=== PATIENT | female | born 2000 | race Caucasian/White ===

== ENCOUNTER 2021-01-17 19:40 | Emergency (ER) | payer BC ==
[2021-01-17 20:05] VITALS: TEMP 98.6
[2021-01-17] MEDS ORDERED: SODIUM CHLORIDE 0.9% 1,000 ML IV STA (20:34)
[2021-01-17] MEDS ORDERED: METOCLOPRAMIDE 5 MG/ML 2 ML VIAL IVP STA (20:35)
[2021-01-17] MEDS ORDERED: diphenhydrAMINE 50 MG/ML 1 ML VIAL IVP STA (20:35)
[2021-01-17 21:13] LABS: Basophils # (A) 0.1 k/uL (0-0.2); Basophils % (A) 1 %; Eosinophils # (A) 0.2 k/uL (0-0.7); Eosinophils % (A) 2 %; HCT 44.1 % (34.0-46.0); HGB 14.6 gm/dL (11.4-16.0); Lymphocytes # (A) 2.9 k/uL (1.0-4.8); Lymphocytes % (A) 33 %; MCH 28.6 pg (25.0-35.0); MCV 86.5 fL (80.0-100.0); Mean Platelet Volume 8.1; Monocytes # (A) 0.4 k/uL (0-1.0); Monocytes % (A) 4 %; Neutrophils # (A) 5.2 k/uL (1.3-7.7); Neutrophils % (A) 59 %; Platelet Count 266 k/uL (150-450); RDW 12.8 % (11.5-15.5); WBC 8.8 k/uL (3.8-10.6)
[2021-01-17 21:18] LABS: Appearance,Urine Cloudy (Clear); Bacteria,Urine Occasional /hpf; Bilirubin,Urine Negative (Negative); Blood,Urine Negative (Negative); Color,Urine Light Yellow; Glucose,Urine (UA) Negative (Negative); Ketones,Urine Negative (Negative); Leukocyte Esterase,Urine Negative (Negative); Mucus,Urine Rare /hpf; Nitrite,Urine Negative (Negative); Protein,Urine Negative (Negative); RBC,Urine 1 /hpf (0-5); Specific Gravity,Urine 1.009 (1.001-1.035); Squamous Epithelial Cell,Urine 6 /hpf (0-4); Urobilinogen,Urine <2.0 mg/dL (<2.0); WBC,Urine 2 /hpf (0-5)
[2021-01-17 21:26] LABS: ALT 21 U/L (4-34); AST 20 U/L (14-36); African American GFR (CKD) >90 (>60 ml/min/1.73 sqM); Albumin 4.5 g/dL (3.5-5.0); Alkaline Phosphatase 76 U/L (38-126); Anion Gap 13 mmol/L; Blood Urea Nitrogen 9 mg/dL (7-17); Calcium 9.2 mg/dL (8.4-10.2); Carbon Dioxide 21 mmol/L (22-30); Chloride 106 mmol/L (98-107); Glucose 126 mg/dL (74-99); Non-African American GFR(CKD) 82 (>60 ml/min/1.73 sqM); Potassium 3.9 mmol/L (3.5-5.1); Sodium 140 mmol/L (137-145); Total Bilirubin 0.3 mg/dL (0.2-1.3); Total Protein 7.6 g/dL (6.3-8.2)
--- NOTE | 2021-01-17 21:42 | XR ---
EXAMINATION TYPE: XR chest 2V DATE OF EXAM: 01/17/2021 COMPARISON: NONE HISTORY: Migraine. Hand numbness. TECHNIQUE: 2 views FINDINGS: Heart and mediastinum are normal. Lungs are clear. Diaphragm is normal. There are chest yeimy ds. Bony thorax appears normal. IMPRESSION: Normal chest.
--- NOTE | 2021-01-17 21:53 | CT ---
EXAMINATION TYPE: CT brain wo con DATE OF EXAM: 01/17/2021 COMPARISON: None HISTORY: Dizziness, syncope CT DLP: 1025.4 mGycm Automated exposure control for dose reduction was used. Images obtained of the brain without contrast. Ventricles have normal size. There is no mass effect nor midline shift. There is no sign of intracran ial hemorrhage. The calvarium is intact. Skull base is intact. There is normal aeration of the mastoi d sinuses. IMPRESSION: Normal unenhanced head CT scan.
[2021-01-17] MEDS ORDERED: KETOROLAC 15 MG/ML 1 ML VIAL IVP STA (22:12)
[2021-01-17 22:13] VITALS: BP 121/68; RESP 16
--- NOTE | 2021-01-17 22:41 | ED ---
General Adult HPI - General Chief complaint: Dizziness Stated complaint: Head pain Time Seen by Provider: 01/17/21 20:06 Source: patient Mode of arrival: ambulatory Limitations: no limitations - History of Present Illness Initial comments: 20-year-old female with a past medical history of migraine presents for migraine headache. Patient reports that she has had a migraine for 11 days. States it is throughout her head. States the pain feels exactly consistent with the previous migraines that she has had for years however they do not usually last t his long and she cannot get it to subside. Patient reports she does have some nausea as well as light sensitivity. She states that she did start a new medication through primary care however this seemed to worsen her pain. She did start another one last week and also has an appointment with neurology in the coming month. Patient states that the pain has been stable throughout the past with an days. It did not worsen significantly today. However patient was showering when she got out of the shower she had some lightheadedness and passed out hitting the upper Tylenol. Patient does not think she hit her head. Patient was also complaining of bilateral hand tingling. Denied any weakness or loss of sensation in the hands.Patient has no other complaints at this time including shortness of breath, chest pain, abdominal pain, nausea or vomiting, or visual changes. - Related Data Home Medications Medication Instructions Recorded Confirmed Acetaminophen Tab [Tylenol] 1,000 mg PO Q8H PRN 01/17/21 01/17/21 Norethindrone-E.estradiol-Iron 1 tab PO DAILY 01/17/21 01/17/21 [Junel Fe 1.5 mg-30 Mcg Tablet] Topiramate [Topamax] See Taper PO HS 01/17/21 01/17/21 Allergies Allergy/AdvReac Type Severity Reaction Status Date / Time cortisone AdvReac Swelling Verified 01/17/21 21:14 Review of Systems ROS Statement: Those systems with pertinent positive or pertinent negative responses have been documented in the HPI. ROS Other: All systems not noted in ROS Statement are negative. Past Medical History Additional Past Medical History / Comment(s): Migraines. History of Any Multi-Drug Resistant Organisms: None Reported Past Surgical History: Orthopedic Surgery Past Psychological History: No Psychological Hx Reported Smoking Status: Never smoker Past Alcohol Use History: Occasional Past Drug Use History: None Reported General Exam Limitations: no limitations General appearance: alert, in no apparent distress Head exam: Present: atraumatic, normocephalic, normal inspection Eye exam: Present: normal appearance, PERRL, EOMI. Absent: scleral icterus, conjunctival injection, periorbital swelling ENT exam: Present: normal exam, mucous membranes moist Neck exam: Present: normal inspection, full ROM. Absent: tenderness, meningismus, lymphadenopathy Respiratory exam: Present: normal lung sounds bilaterally. Absent: respiratory distress, wheezes, rales, rhonchi, stridor Cardiovascular Exam: Present: regular rate, normal rhythm, normal heart sounds. Absent: systolic murmur, diastolic murmur, rubs, gallop, clicks GI/Abdominal exam: Present: soft, normal bowel sounds. Absent: distended, tenderness, guarding, rebound, rigid Neurological exam: Present: alert, oriented X3, normal gait Expanded Patient oriented to: Present: person, place, time Speech: Present: fluid speech Cranial nerves: EOM's Intact: Normal, Nystagmus: Normal, Facial Sensation: Normal Upper motor neuron: Pronator Drift: Normal Sensory exam: Upper Extremity Light Touch: Normal, Upper Extremity Pin Prick: Normal, Lower Extremity Light Touch: Normal, Lower Extremity Pin Prick: Normal Motor strength exam: RUE: 5, LUE: 5, RLE: 5, LLE: 5 Course Vital Signs 01/17/21 01/17/21 01/17/21 19:57 21:13 22:12 Temperature 98.6 F Pulse Rate 104 H 106 H 94 Respiratory 18 18 16 Rate Blood Pressure 164/99 137/91 121/68 O2 Sat by Pulse 99 100 100 Oximetry 01/17/21 22:47 Temperature 98.6 F Pulse Rate 82 Respiratory 16 Rate Blood Pressure 121/68 O2 Sat by Pulse 98 Oximetry Medical Decision Making - Medical Decision Making Vitals are stable. HPI and physical exam as documented. CBC unremarkable. CMP unremarkable. EKG is nonischemic. Chest x-ray showed no acute process. As patient has not had any imaging of her head a CT was ordered which was normal. Patient was given fluids and migraine cocktail. Had significant improvement in symptoms. I suspect the episode was vasovagal in nature given patient had just showered. Patient's migraines are clearly uncontrolled and she does need to follow-up with her neurologist at her appointment this coming month. If she has worsening symptoms prior to that she will return to the emergency room. She will try to follow up with primary care this week as well. - Lab Data Result diagrams: 01/17/21 20:58 01/17/21 20:58 Lab Results 01/17/21 01/17/21 01/17/21 Range/Units 20:58 20:58 20:58 WBC 8.8 (3.8-10.6) k/uL RBC 5.10 (3.80-5.40) m/uL Hgb 14.6 (11.4-16.0) gm/dL Hct 44.1 (34.0-46.0) % MCV 86.5 (80.0-100.0) fL MCH 28.6 (25.0-35.0) pg MCHC 33.0 (31.0-37.0) g/dL RDW 12.8 (11.5-15.5) % Plt Count 266 (150-450) k/uL MPV 8.1 Neutrophils % 59 % Lymphocytes % 33 % Monocytes % 4 % Eosinophils % 2 % Basophils % 1 % Neutrophils # 5.2 (1.3-7.7) k/uL Lymphocytes # 2.9 (1.0-4.8) k/uL Monocytes # 0.4 (0-1.0) k/uL Eosinophils # 0.2 (0-0.7) k/uL Basophils # 0.1 (0-0.2) k/uL Sodium 140 (137-145) mmol/L Potassium 3.9 (3.5-5.1) mmol/L Chloride 106 (98-107) mmol/L Carbon Dioxide 21 L (22-30) mmol/L Anion Gap 13 mmol/L BUN 9 (7-17) mg/dL Creatinine 0.98 (0.52-1.04) mg/dL Est GFR (CKD-EPI)AfAm >90 (>60 ml/min/1.73 sqM) Est GFR (CKD-EPI)NonAf 82 (>60 ml/min/1.73 sqM) Glucose 126 H (74-99) mg/dL Calcium 9.2 (8.4-10.2) mg/dL Total Bilirubin 0.3 (0.2-1.3) mg/dL AST 20 (14-36) U/L ALT 21 (4-34) U/L Alkaline Phosphatase 76 (38-126) U/L Total Protein 7.6 (6.3-8.2) g/dL Albumin 4.5 (3.5-5.0) g/dL Urine Color Light Yellow Urine Appearance Cloudy H (Clear) Urine pH 6.0 (5.0-8.0) Ur Specific [place] 1.009 (1.001-1.035) Urine Protein Negative (Negative) Urine Glucose (UA) Negative (Negative) Urine Ketones Negative (Negative) Urine Blood Negative (Negative) Urine Nitrite Negative (Negative) Urine Bilirubin Negative (Negative) Urine Urobilinogen <2.0 (<2.0) mg/dL Ur Leukocyte Esterase Negative (Negative) Urine RBC 1 (0-5) /hpf Urine WBC 2 (0-5) /hpf Ur Squamous Epith Cells 6 H (0-4) /hpf Urine Bacteria Occasional H (None) /hpf Urine Mucus Rare H (None) /hpf Urine HCG, Qual (Not Detectd) 01/17/21 Range/Units 20:58 WBC (3.8-10.6) k/uL RBC (3.80-5.40) m/uL Hgb (11.4-16.0) gm/dL Hct (34.0-46.0) % MCV (80.0-100.0) fL MCH (25.0-35.0) pg MCHC (31.0-37.0) g/dL RDW (11.5-15.5) % Plt Count (150-450) k/uL MPV Neutrophils % % Lymphocytes % % Monocytes % % Eosinophils % % Basophils % % Neutrophils # (1.3-7.7) k/uL Lymphocytes # (1.0-4.8) k/uL Monocytes # (0-1.0) k/uL Eosinophils # (0-0.7) k/uL Basophils # (0-0.2) k/uL Sodium (137-145) mmol/L Potassium (3.5-5.1) mmol/L Chloride (98-107) mmol/L Carbon Dioxide (22-30) mmol/L Anion Gap mmol/L BUN (7-17) mg/dL Creatinine (0.52-1.04) mg/dL Est GFR (CKD-EPI)AfAm (>60 ml/min/1.73 sqM) Est GFR (CKD-EPI)NonAf (>60 ml/min/1.73 sqM) Glucose (74-99) mg/dL Calcium (8.4-10.2) mg/dL Total Bilirubin (0.2-1.3) mg/dL AST (14-36) U/L ALT (4-34) U/L Alkaline Phosphatase (38-126) U/L Total Protein (6.3-8.2) g/dL Albumin (3.5-5.0) g/dL Urine Color Urine Appearance (Clear) Urine pH (5.0-8.0) Ur Specific [place] (1.001-1.035) Urine Protein (Negative) Urine Glucose (UA) (Negative) Urine Ketones (Negative) Urine Blood (Negative) Urine Nitrite (Negative) Urine Bilirubin (Negative) Urine Urobilinogen (<2.0) mg/dL Ur Leukocyte Esterase (Negative) Urine RBC (0-5) /hpf Urine WBC (0-5) /hpf Ur Squamous Epith Cells (0-4) /hpf Urine Bacteria (None) /hpf Urine Mucus (None) /hpf Urine HCG, Qual Not Detected (Not Detectd) - Radiology Data Radiology results: report reviewed, image reviewed Disposition Clinical Impression: Migraine Disposition: HOME SELF-CARE Condition: Good Instructions (If sedation given, give patient instructions): Migraine Headache (ED) Additional Instructions: Please follow up with primary care in 1-2 days. Please return to the emergency room for any worsening symptoms. Is patient prescribed a controlled substance at d/c from ED?: No Referrals: Huyen Ling MD [Primary Care Provider] - 1-2 days Time of Disposition: 22:41
[2021-01-17 22:48] VITALS: PULSE 82
== END 2021-01-17 22:48 | disposition home or self-care (01) ==
LOC: EC 19:40
DX: G43.909 Migraine, unspecified, not intractable, without status migrainosus (principal)
CPT/HCPCS: 36415; 93005; 80053; 85025; 81001; 81025; 71046; 70450; 99284; 96374; 96375; 96361; J1200; J2765; J1885

== ENCOUNTER 2021-07-08 02:38 | Emergency (ER) | payer BC ==
[2021-07-08 02:51] VITALS: TEMP 98.2
[2021-07-08] MEDS ORDERED: KETOROLAC 15 MG/ML 1 ML VIAL IVP STA (02:59)
[2021-07-08] MEDS ORDERED: diphenhydrAMINE 50 MG/ML 1 ML VIAL IVP STA (02:59)
[2021-07-08] MEDS ORDERED: SODIUM CHLORIDE 0.9% 1,000 ML IV STA (02:59)
[2021-07-08] MEDS ORDERED: PROCHLORPERAZINE INJ 10 MG/2 ML VIAL IVP STA (03:00)
--- NOTE | 2021-07-08 03:00 | ED ---
Headache HPI - General Chief Complaint: Headache Stated Complaint: Migraines Time Seen by Provider: 07/08/21 02:40 Source: RN notes reviewed, old records reviewed Mode of arrival: ambulatory Limitations: no limitations - History of Present Illness Initial Comments: This is a 21-year-old female to the ER today. Patient presents today for evaluation of headache with history of migraines acute on chronic migraine at this time. Patient is noted traumas no fevers and no other neurological complaint. Again patient does have history of migraine MD Complaint: headache, "migraine" -: days(s) Onset Description: gradual Location: right, left, frontal Severity: moderate Severity scale (1-10): 5 Quality: aching, throbbing Consistency: intermittent Worsens With: none Context: new medication Associated Symptoms: nausea, photophobia, sensitivity to sound Other Symptoms: other (none) Treatments Prior to Arrival: none - Related Data Home Medications Medication Instructions Recorded Confirmed Acetaminophen Tab [Tylenol] 1,000 mg PO Q8H PRN 01/17/21 01/17/21 Norethindrone-E.estradiol-Iron 1 tab PO DAILY 01/17/21 01/17/21 [Junel Fe 1.5 mg-30 Mcg Tablet] Topiramate [Topamax] See Taper PO HS 01/17/21 01/17/21 Allergies Allergy/AdvReac Type Severity Reaction Status Date / Time cortisone AdvReac Swelling Verified 01/17/21 21:14 Review of Systems ROS Statement: Those systems with pertinent positive or pertinent negative responses have been documented in the HPI. ROS Other: All systems not noted in ROS Statement are negative. Past Medical History Additional Past Medical History / Comment(s): Migraines. History of Any Multi-Drug Resistant Organisms: None Reported Past Surgical History: Orthopedic Surgery Past Psychological History: No Psychological Hx Reported Smoking Status: Never smoker Past Alcohol Use History: Occasional Past Drug Use History: None Reported General Exam Limitations: no limitations General appearance: alert, in no apparent distress Head exam: Present: atraumatic, normocephalic, normal inspection Eye exam: Present: normal appearance, PERRL, EOMI. Absent: scleral icterus, conjunctival injection, periorbital swelling ENT exam: Present: normal exam, mucous membranes moist Neck exam: Present: normal inspection. Absent: tenderness, meningismus, lymphadenopathy Respiratory exam: Present: normal lung sounds bilaterally. Absent: respiratory distress, wheezes, rales, rhonchi, stridor Cardiovascular Exam: Present: regular rate, normal rhythm, normal heart sounds. Absent: systolic murmur, diastolic murmur, rubs, gallop, clicks GI/Abdominal exam: Present: soft, normal bowel sounds. Absent: distended, tenderness, guarding, rebound, rigid Extremities exam: Present: normal inspection, full ROM, normal capillary refill. Absent: tenderness, pedal edema, joint swelling, calf tenderness Back exam: Present: normal inspection Neurological exam: Present: alert, oriented X3, CN II-XII intact Psychiatric exam: Present: normal affect, normal mood Skin exam: Present: warm, dry, intact, normal color. Absent: rash Course Vital Signs 07/08/21 02:44 Temperature 98.2 F Pulse Rate 83 Respiratory 16 Rate Blood Pressure 155/88 O2 Sat by Pulse 98 Oximetry - Reevaluation(s) Reevaluation #1: 07/08/21 03:33 medical record is reviewed Reevaluation #2: 07/08/21 03:33 Patient's headache at this time is improved Reevaluation #3: 07/08/21 03:33 Patient is informed results questions answered feels good for discharge home Medical Decision Making - Medical Decision Making 21 female with acute on chronic migraine headache. Patient's headache is resolved here in the ER with no worsening symptoms. Patient can be discharged Disposition Clinical Impression: Migraine headache Disposition: HOME SELF-CARE Condition: Good Instructions (If sedation given, give patient instructions): Acute Headache (ED) Is patient prescribed a controlled substance at d/c from ED?: No Referrals: Huyen Ling MD [Primary Care Provider] - 1-2 days
[2021-07-08 04:12] VITALS: BP 127/86; PULSE 70; RESP 20
== END 2021-07-08 04:52 | disposition home or self-care (01) ==
LOC: EC 02:38
DX: G43.909 Migraine, unspecified, not intractable, without status migrainosus (principal)
CPT/HCPCS: 99283; 96365; 96375 ×3; J1200; J0780; J2930; J1885

== ENCOUNTER → 2021-07-11 | Outpatient (CLI) | payer BC ==
--- NOTE | 2021-07-12 05:01 | MR ---
EXAMINATION TYPE: MR brain and iac wo con DATE OF EXAM: 07/11/2021 COMPARISON: None HISTORY: Chronic migraine, dizziness, syncope Multiplanar multiecho imaging of the brain and posterior fossa without contrast. Ventricles have normal size. There is no mass effect nor midline shift. There is no sign of intracran ial hemorrhage. Diffusion images show no evidence of an acute infarct. Mayer-white matter structures have fairly normal signal pattern. There is no evidence of cerebral shelby a. Sella turcica appears normal. Brainstem is intact. Corpus callosum is intact. There is no evidence of orbital mass. The internal auditory canals appear normal. There is no evidence of cerebellopontine angle mass. The acoustic nerve and vestibular nerves appear normal. There is normal signal pattern of the temporal erin carlos. There is no evidence of mastoiditis. Foramen magnum appears normal. IMPRESSION: Normal MR scan of the brain.
== END | disposition home or self-care (01) ==
LOC: RADMRIMAIN 06:28
PROVIDERS: ATTEND Psychiatry & Neurology Neurology
DX: G43.909 Migraine, unspecified, not intractable, without status migrainosus (principal); R42 Dizziness and giddiness
CPT/HCPCS: 70551

== ENCOUNTER 2022-10-22 15:35 | Outpatient (CLI) | payer BC ==
[2022-10-22 16:29] VITALS: BP 138/90; PULSE 119; RESP 16; TEMP 98
--- NOTE | 2022-10-23 07:44 | P.MSEPDOC ---
Presenting Problems - Arrival Data Date of Arrival on Unit: 10/22/22 Time of Arrival on Unit: 15:31 Mode of Transport: Ambulatory - Complaint OB-Reason for Admission/Chief Complaint: Rule Out SROM Medical History - Information : 1 Para: 0 Number of Living Children: 0 - Gestational Age Gestational Age by TRAMAINE (wks/days): 36 Weeks and 0 Days Review of Systems - Review of Systems Constitutional: No problems Breast: No problems ENT: No problems Cardiovascular: No problems Respiratory: No problems Gastrointestinal: No problems Genitourinary: No problems Musculoskeletal: No problems Neurological: No problems Skin: No problems Vital Signs - Temperature Temperature: 98.0 F Temperature Source: Temporal Artery Scan - Pulse Right Sitting Brachial Pulse Rate: 119 Pulse Assessment Method: Automatic Cuff - Respirations Respiratory Rate: 16 Oxygen Delivery Method: Room Air O2 Sat by Pulse Oximetry: 100 - Blood Pressure Right Arm Sitting Blood Pressure: 138/90 Blood Pressure Mean: 106 Blood Pressure Source: Automatic Cuff Medical Screen Scoring - Cervical Exam Dilation (cm): 0 Effacement (%): 0 Station: -2 Membranes: Intact - Uterine Contractions Frequency From (mins): 2 Frequency To (mins): 3 Duration From (seconds): 30 Duration To (seconds): 40 Intensity: Mild Resting: Soft to palpation - Assessment - Baby A Baseline FHR: 130 Heart Rate - NICHD Category: Category I (Normal) NST: Reactive Physician Notification - Physician Notified Physician Notified Date: 10/22/22 Physician Notified Time: 16:11 Physician: Remberto Rivas New Order Received: Yes - Notification Comment Comment: dc Maternal Triage Index - Maternal Triage Index Presenting for scheduled procedure w/no complaint: No - Stat/Priority 1 Stat Priority 1: No - Urgent/Priority 2 Urgent Priority 2: No - Prompt/Priority 3 Prompt Priority 3: Yes Criteria Met for Priority 3: leaking fluid, cramping Disposition - Disposition OB Disposition: Discharge to home Discharge Date: 10/22/22 Discharge Time: 16:21 I agree with the RN Medical Screening Exam: Yes Case reviewed; plan agreed upon as documented in EMR&OBIX.: Yes Diagnosis: FALSE LABOR BEFORE 37 COMPLETED WEEKS OF GEST, THIRD TRI
== END 2022-10-22 16:21 | disposition home or self-care (01) ==
LOC: FBPOP 15:35
PROVIDERS: ATTEND Obstetrics & Gynecology
DX: O47.03 False labor before 37 completed weeks of gestation, third trimester (principal); Z3A.36 36 weeks gestation of pregnancy; Z88.8 Allergy status to other drugs, medicaments and biological substances
CPT/HCPCS: 59025; 84112; 99213

== ENCOUNTER 2022-10-24 21:19 | Outpatient (CLI) | payer BC ==
[2022-10-24] MEDS ORDERED: diphenhydrAMINE 50 MG/ML 1 ML VIAL IVP STA (21:55)
[2022-10-24] MEDS ORDERED: METOCLOPRAMIDE 5 MG/ML 2 ML VIAL IVP STA (21:56)
[2022-10-24] MEDS ORDERED: LACTATED RINGERS 1,000 ML IV SCH (22:00)
[2022-10-24 22:28] LABS: Basophils % (A) 0 %; Eosinophils # (A) 0.1 k/uL (0-0.7); Eosinophils % (A) 0 %; HCT 34.6 % (34.0-46.0); HGB 11.9 gm/dL (11.4-16.0); Lymphocytes # (A) 1.9 k/uL (1.0-4.8); Lymphocytes % (A) 16 %; MCH 30.3 pg (25.0-35.0); MCHC 34.5 g/dL (31.0-37.0); MCV 87.8 fL (80.0-100.0); Mean Platelet Volume 12.2; Monocytes # (A) 0.6 k/uL (0-1.0); Monocytes % (A) 5 %; Neutrophils # (A) 9.4 k/uL (1.3-7.7); Neutrophils % (A) 77 %; Platelet Count 153 k/uL (150-450); RBC 3.94 m/uL (3.80-5.40); RDW 13.3 % (11.5-15.5); WBC 12.2 k/uL (3.8-10.6)
[2022-10-24 22:28] LABS: Appearance,Urine Cloudy (Clear); Bacteria,Urine Few /hpf; Bilirubin,Urine Negative (Negative); Blood,Urine Negative (Negative); Color,Urine Yellow; Glucose,Urine (UA) Negative (Negative); Hyaline Casts,Urine 1 /lpf (0-2); Ketones,Urine Negative (Negative); Leukocyte Esterase,Urine Small (Negative); Mucus,Urine Few /hpf; Nitrite,Urine Negative (Negative); PH, Urine 6.5 (5.0-8.0); Protein,Urine 1+ (Negative); RBC,Urine 1 /hpf (0-5); Specific Gravity,Urine 1.024 (1.001-1.035); Squamous Epithelial Cell,Urine 13 /hpf (0-4); Urobilinogen,Urine <2.0 mg/dL (<2.0); WBC,Urine 9 /hpf (0-5)
[2022-10-24 22:39] LABS: Creatinine,Urine Random 129.9 mg/dL; Protein/Creatinine Ratio,Urine 0.108
[2022-10-25 00:26] LABS: ALT 15 U/L (4-34); AST 19 U/L (14-36); African American GFR (CKD) >90 (>60 ml/min/1.73 sqM); Blood Urea Nitrogen 8 mg/dL (7-17); LDH 342 U/L (313-618); Non-African American GFR(CKD) >90 (>60 ml/min/1.73 sqM); Uric Acid 5.2 mg/dL (3.7-7.4)
[2022-10-25 00:55] VITALS: BP 139/89; PULSE 88; RESP 18; TEMP 97.8
--- NOTE | 2022-10-27 08:42 | P.MSEPDOC ---
Presenting Problems - Arrival Data Date of Arrival on Unit: 10/24/22 Time of Arrival on Unit: 21:19 Mode of Transport: Ambulatory - Complaint OB-Reason for Admission/Chief Complaint: Headache Medical History - Information : 1 Para: 0 Term: 0 : 0 Abortions: Spontaneous or Elective: 0 Number of Living Children: 0 - Gestational Age Gestational Age by TRAMAINE (wks/days): 36 Weeks and 3 Days Review of Systems - Review of Systems Constitutional: No problems Breast: No problems ENT: No problems Cardiovascular: No problems Respiratory: No problems Gastrointestinal: No problems Genitourinary: No problems Musculoskeletal: No problems Neurological: No problems Skin: No problems Vital Signs - Temperature Temperature: 97.8 F Temperature Source: Oral - Pulse Right Brachial Pulse Rate: 88 Pulse Assessment Method: Automatic Cuff - Respirations Respiratory Rate: 18 Oxygen Delivery Method: Room Air O2 Sat by Pulse Oximetry: 98 - Blood Pressure Right Arm Blood Pressure: 139/89 Blood Pressure Mean: 105 Blood Pressure Source: Automatic Cuff Medical Screen Scoring - Assessment - Baby A Heart Rate - NICHD Category: Category I (Normal) NST: Reactive Physician Notification - Physician Notified Physician Notified Date: 10/25/22 Physician Notified Time: 00:32 Physician: Billie Rapp Order Received: Yes - Notification Comment Comment: Dr. Tamela navarrete report on pt. Pt c/o. VS. readback. CAT 1 FHTs, no contractions noted per pt or. toco. Pt hx of migraines. Pt reports no relief from. Tylenol. Orders recieved for PIH labs, lactated. ringers for hydration, 50mg IVP benadryl, 10mg Reglan. IVP. To call with results. Dr. navarrete report on pt labs. Labs readback. to Pt reports relief and pain has significantly. decreased. Pt has apt for 10/[address] Rivas. Orders recieved to d/c pt to home. Maternal Triage Index - Non-Urgent/Priority 4 Non-Urgent Priority 4: Yes Criteria Met for Priority 4: Pt presents with c/o of migraine. Disposition - Disposition OB Disposition: Discharge to home Discharge Date: 10/25/22 Discharge Time: 00:41 I agree with the RN Medical Screening Exam: Yes Case reviewed; plan agreed upon as documented in EMR&OBIX.: Yes Diagnosis: MIGRAINE W/O AURA, INTRACTABLE, WITHOUT STATUS MIGRAINOSUS
== END 2022-10-25 00:41 | disposition home or self-care (01) ==
LOC: FBPOP 21:19
PROVIDERS: ATTEND Obstetrics & Gynecology
DX: O26.893 Other specified pregnancy related conditions, third trimester (principal); Z3A.36 36 weeks gestation of pregnancy; G43.019 Migraine without aura, intractable, without status migrainosus
CPT/HCPCS: 59025; 99214; 96360; 96361; 96375; 36415; 82570; 84156; 82565; 83615; 84450; 84460; 84520; 84550; 85025; 81001; J1200; J2765

== ENCOUNTER 2022-10-30 20:09 | Inpatient (IN) | payer BC ==
[2022-10-30] MEDS ORDERED: TERBUTALINE 1 MG/ML VIAL SQ PRN (20:43)
[2022-10-30] MEDS ORDERED: LIDOCAINE 0.5% (PF) 5 MG/ML (50 ML SDV) SQ PRN (20:43)
[2022-10-30] MEDS ORDERED: OXYTOCIN 30 UNITS/500 ML NS 30 UNIT in SALINE 1 500ML.BAG IV SCH (20:45)
[2022-10-30] MEDS ORDERED: BUTORPHANOL 1 MG/ML 1 ML VIAL IV PRN (20:49)
[2022-10-30] MEDS: LACTATED RINGERS 1,000 ML IV SCH (21:25)
[2022-10-30 21:49] VITALS: RESP 16
[2022-10-30 21:54] LABS: Basophils % (A) 0 %; Eosinophils % (A) 0 %; HCT 36.6 % (34.0-46.0); HGB 12.6 gm/dL (11.4-16.0); Lymphocytes # (A) 1.9 k/uL (1.0-4.8); Lymphocytes % (A) 13 %; MCH 30.1 pg (25.0-35.0); MCHC 34.5 g/dL (31.0-37.0); MCV 87.3 fL (80.0-100.0); Mean Platelet Volume 12.7; Monocytes # (A) 0.7 k/uL (0-1.0); Monocytes % (A) 4 %; Neutrophils # (A) 12.3 k/uL (1.3-7.7); Neutrophils % (A) 81 %; Platelet Count 171 k/uL (150-450); RBC 4.19 m/uL (3.80-5.40); RDW 13.2 % (11.5-15.5); WBC 15.2 k/uL (3.8-10.6)
[2022-10-30 22:02] LABS: Creatinine,Urine Random 15.9 mg/dL; Protein/Creatinine Ratio,Urine 2.264
[2022-10-30 22:03] LABS: ALT 18 U/L (4-34); AST 23 U/L (14-36); African American GFR (CKD) >90 (>60 ml/min/1.73 sqM); Blood Urea Nitrogen 9 mg/dL (7-17); LDH 439 U/L (313-618); Non-African American GFR(CKD) >90 (>60 ml/min/1.73 sqM); Uric Acid 5.2 mg/dL (3.7-7.4)
[2022-10-31 00:09] LABS: Glucose,Whole Blood 122 mg/dL (70-110)
[2022-10-31 02:04] LABS: Glucose,Whole Blood 102 mg/dL (70-110)
[2022-10-31 03:56] LABS: Glucose,Whole Blood 108 mg/dL (70-110)
[2022-10-31] MEDS ORDERED: ROPIVACAINE 100 MG, fentaNYL (PF). 200 MCG in SODIUM CHLORIDE 0.9% 76 ML EPIDURAL ONE (04:20)
[2022-10-31] MEDS ORDERED: AMPICILLIN 2,000 MG in SODIUM CHLORIDE 0.9% 100 ML IVPB STA (05:35)
[2022-10-31 06:12] LABS: Glucose,Whole Blood 120 mg/dL (70-110)
--- NOTE | 2022-10-31 07:14 | P.HPOB ---
History of Present Illness H&P Date: 10/31/22 Chief Complaint: Leaking of fluid This patient is a pleasant 22-year-old 1 para 0 female estimated date of confinement 11/19/2022 estimated gestational age 37-2/7 weeks who presents to labor and delivery last evening with complaints of gush of fluid. Patient is admitted per Dr. Rapp at this time. care is complicated by gestational diabetes that has been well-controlled with diet only. testing has been normal. Patient's found to have gross rupture membranes and is currently having her labor augmented. Review of Systems Genitourinary: Reports Menstruation: Reports amenorrhea Past Medical History Additional Past Medical History / Comment(s): Migraines. History of Any Multi-Drug Resistant Organisms: None Reported Past Surgical History: Orthopedic Surgery Additional Past Surgical History / Comment(s): right ankle, wisdom teeth Past Anesthesia/Blood Transfusion Reactions: Motion Sickness Past Psychological History: No Psychological Hx Reported Smoking Status: Never smoker Past Alcohol Use History: None Reported Past Drug Use History: None Reported - Past Family History Father Family Medical History: No Reported History Medications and Allergies Home Medications Medication Instructions Recorded Confirmed Type Vit No.179/Iron/Folic 1 cap PO ONCE 10/24/22 10/30/22 History [ Tablet] Allergies Allergy/AdvReac Type Severity Reaction Status Date / Time No Known Allergies Allergy Verified 10/30/22 20:42 Exam Vital Signs Temp Pulse Resp BP Pulse Ox 10/30/22 20:41 98 F 112 H 16 140/98 97 Intake and Output 10/30/22 10/31/22 10/31/22 22:59 06:59 14:59 Other: Weight 100.698 kg - OBG Physical Exam Vulva: both: normal Vagina: normal moisture, no discharge Cervix: no lesion (Cervix is complete and +1 station), no discharge Uterus: enlarged Results labs show she is B positive, rubella immune, RPR nonreactive, hepatitis B negative, HIV is negative, Glucola was 156 with an abnormal 3 hour gtt., group B strep was negative, most recent ultrasounds of the baby is 6 lbs. 12 oz. Result Diagrams: 10/30/22 21:30 10/30/22 21:30 Abnormal Lab Results - Last 24 Hours (Table) 10/30/22 10/31/22 10/31/22 Range/Units 21:30 00:06 06:10 WBC 15.2 H (3.8-10.6) k/uL Neutrophils # 12.3 H (1.3-7.7) k/uL POC Glucose (mg/dL) 122 H 120 H (70-110) mg/dL Assessment and Plan Assessment: This is a pleasant 22-year-old 1 para 0 female 37-2/7 weeks gestation admitted to labor and delivery with spontaneous rupture membranes. Patient's had augmentation of labor and is now complete therefore we anticipate vaginal delivery. (1) 37 weeks gestation of Current Visit: Yes Status: Acute Code(s): Z3A.37 - 37 WEEKS GESTATION OF SNOMED Code(s): 53622792 (2) Spontaneous rupture of amniotic membranes Current Visit: Yes Status: Acute Code(s): MYG6756 - SNOMED Code(s): 425193062 (3) Gestational diabetes Current Visit: Yes Status: Acute Code(s): O24.419 - GESTATIONAL DIABETES MELLITUS IN , UNSP CONTROL SNOMED Code(s): 77081170
--- NOTE | 2022-10-31 07:54 | P.PROBDLV ---
Vaginal Delivery Note - . Vaginal Delivery Note: Normal vaginal delivery viable male infant Apgars 9 and 9 delivery time is 0733 hours. Please see dictated H&P for intimate details of this patient's admission. Brief summary this is a pleasant 22-year-old 1 para 0 female 37-2/7 weeks who presents to labor and delivery last evening with spontaneous rupture membranes. Patient is started on antibiotics and given Pitocin augmentation of labor. Patient does receive a dose of Stadol for pain control and then an epidural. Patient progresses quickly thereafter to complete. She pushes the head to the perineum after about 30 minutes. Sterile perineum is supported we have controlled delivery of 's head over the intact perineum. There is a hand presenting anteriorly and this spontaneously reduces. With gentle downward traction we then have delivery the anterior and posterior shoulder and rest this 's body. This is a vigorous viable male infant Apgars are 9 and 9 delivery time is 0733 hours. After delivery of the infant, the infant is laid on the mother's abdomen. After the cord is then pulsating is doubly clamped and cut. The placenta is then spontaneously delivered intact. Inspection of the perineum shows a second-degree laceration which is repaired with 3-0 Vicryl in the usual fashion. Excellent reapproximation is noted. Estimated blood loss is 100 mL. There are no complications. All counts correct 3. and mother are stable delivery room.
[2022-10-31] MEDS ORDERED: SIMETHICONE 80 MG CHEWABLE PO PRN (07:56)
[2022-10-31] MEDS ORDERED: HYDROCORTISONE 2.5% RECTAL CREAM 30 GM TUBE RECTAL PRN (07:56)
[2022-10-31] MEDS ORDERED: ZOLPIDEM 5 MG TAB PO PRN (07:56)
[2022-10-31] MEDS ORDERED: diphenhydrAMINE 25 MG CAP PO PRN (07:56)
[2022-10-31] MEDS ORDERED: OXYTOCIN 30 UNITS/500 ML NS 30 UNIT in SALINE 1 500ML.BAG IV SCH (07:56)
[2022-10-31] MEDS ORDERED: diphenhydrAMINE 50 MG/ML 1 ML VIAL IVP PRN (07:56)
[2022-10-31] MEDS ORDERED: LANOLIN CREAM 5 GM TUBE TOPICAL PRN (07:56)
[2022-10-31] MEDS ORDERED: bisacodyL 10 MG SUPP RECTAL PRN (07:56)
[2022-10-31] MEDS ORDERED: BENZOCAINE/MENTHOL SPRAY 1 GM/SPRAY AEROSOL TOPICAL PRN (07:56)
[2022-10-31] MEDS: IBUPROFEN 600 MG TAB PO PRN ×2 (08:50→17:15)
[2022-10-31] MEDS: LACTATED RINGERS 1,000 ML IV SCH (08:50)
[2022-10-31] MEDS: SENNOSIDES-DOCUSATE SODIUM 1 EACH TAB PO SCH ×2 (08:51→20:12)
[2022-10-31] MEDS ORDERED: AMPICILLIN 1,000 MG in SODIUM CHLORIDE 0.9% 50 ML IVPB SCH (10:00)
[2022-10-31 12:46] LABS: Glucose,Whole Blood 130 mg/dL (70-110)
[2022-10-31] MEDS: ACETAMINOPHEN TAB 325 MG TAB PO PRN (20:13)
[2022-11-01] MEDS: IBUPROFEN 600 MG TAB PO PRN ×2 (00:47→18:09)
--- NOTE | 2022-11-01 06:33 | P.PNOBGVD ---
Subjective - Subjective Patient reports: Reports appetite normal, Reports voiding normally, Reports pain well controlled, Reports ambulating normally : doing well Objective - Latest Vital Signs Latest vital signs: Vital Signs Temp Pulse Resp BP Pulse Ox 11/01/22 00:00 97.7 F 51 L 16 118/79 100 10/31/22 20:00 98.0 F 98 16 128/82 10/31/22 16:00 98.3 F 92 16 132/92 95 10/31/22 11:30 98.5 F 102 H 16 147/95 10/31/22 09:45 98 16 127/77 10/31/22 09:15 96 16 132/70 10/31/22 08:45 100 16 131/73 10/31/22 08:30 107 H 16 140/79 10/31/22 08:15 101 H 16 130/74 10/31/22 08:00 100 16 126/72 10/31/22 07:45 98.6 F 114 H 16 139/81 Intake and Output 10/31/22 10/31/22 11/01/22 14:59 22:59 06:59 Intake Total 187.4 400 Output Total 305 Balance -117.6 400 Intake: Intake, IV Titration 187.4 Amount Oxytocin 30 Units/500 ml 187.4 Ns 30 unit In Saline 1 500ml.bag @ Per Protocol IV .Q0M COUNTS INCLUDE 234 BEDS AT THE [facility] Rx#:[id number] Oral 400 Output: Estimated Blood Loss 150 Output, Quantitative 155 Blood Loss Other: # Voids 1 3 1 - Exam Lungs: bilateral: normal Chest: Normal S1, Normal S2 Extremities: Present: normal Abdomen: Present: normal appearance, soft Uterus: Present: normal, firm - Labs Labs: Abnormal Lab Results - Last 24 Hours (Table) 10/30/22 Range/Units 21:24 POC Glucose (mg/dL) 130 H (70-110) mg/dL Assessment and Plan Assessment: day #1. Patient is resting without new complaints and wishes to go home. She has some mild blood pressure elevations yesterday however preeclampsia labs were negative and blood pressures are normal today. Uterus is firm nontender she's having normal lochia. My impression that this is a normal course. Plan is to continue routine care and discharge home later today. (1) 37 weeks gestation of Current Visit: Yes Status: Acute Code(s): Z3A.37 - 37 WEEKS GESTATION OF SNOMED Code(s): 68033705 (2) Spontaneous rupture of amniotic membranes Current Visit: Yes Status: Acute Code(s): NYX6508 - SNOMED Code(s): 020315023 (3) Gestational diabetes Current Visit: Yes Status: Acute Code(s): O24.419 - GESTATIONAL DIABETES MELLITUS IN , UNSP CONTROL SNOMED Code(s): 02470223
--- NOTE | 2022-11-01 06:40 | P.DS ---
Providers Date of admission: 10/30/22 20:23 Expected date of discharge: 11/01/22 Attending physician: Remberto Rivas Primary care physician: Stated None - Discharge Diagnosis(es) (1) 37 weeks gestation of Current Visit: Yes Status: Acute (2) Spontaneous rupture of amniotic membranes Current Visit: Yes Status: Acute (3) Gestational diabetes Current Visit: Yes Status: Acute Hospital Course: Please see dictated H&P for intimate details of this patient's admission. In brief summary this is a pleasant 22-year-old 1 para 0 female 37-2/7 weeks dated to labor and delivery spontaneous rupture membranes. Patient has Pitocin augmentation of labor goes on to have a vaginal delivery viable male infant. Please see dictated delivery note. day #1 patient's felt to be stable for discharge home follow up with me in 6 weeks. Procedures: Normal vaginal delivery Patient Condition at Discharge: Good Plan - Discharge Summary New Discharge Prescriptions: New Ibuprofen [Motrin] 600 mg PO Q6HR PRN #30 tab PRN Reason: Mild Pain (Scale 1 To 3) No Action Vit No.179/Iron/Folic [ Tablet] 1 cap PO ONCE Discharge Medication List Vit No.179/Iron/Folic [ Tablet] 1 cap PO ONCE 10/24/22 [History] Ibuprofen [Motrin] 600 mg PO Q6HR PRN #30 tab 11/01/22 [Rx] Follow up Appointment(s)/Referral(s): Remberto Rivas MD [STAFF PHYSICIAN] - 12/13/22 8:45 am Patient Instructions/Handouts: Vaginal Delivery (DC) Activity/Diet/Wound Care/Special Instructions: No intercourse or anything per vagina for 6 weeks. Please call if any fever, chills, excessive vaginal bleeding, and/or abdominal pain. Discharge Disposition: HOME SELF-CARE
[2022-11-01] MEDS: SENNOSIDES-DOCUSATE SODIUM 1 EACH TAB PO SCH ×2 (08:06→18:09)
[2022-11-01 08:18] LABS: Basophils % (A) 0 %; Eosinophils # (A) 0.1 k/uL (0-0.7); Eosinophils % (A) 1 %; HCT 32.7 % (34.0-46.0); HGB 10.8 gm/dL (11.4-16.0); Hypochromasia Slight; Lymphocytes % (A) 18 %; MCV 91.1 fL (80.0-100.0); Mean Platelet Volume 12.1; Monocytes # (A) 0.6 k/uL (0-1.0); Monocytes % (A) 5 %; Neutrophils # (A) 8.3 k/uL (1.3-7.7); Neutrophils % (A) 74 %; RBC 3.59 m/uL (3.80-5.40); RDW 13.5 % (11.5-15.5); WBC 11.1 k/uL (3.8-10.6)
[2022-11-01 08:31] LABS: Platelet Count 140 k/uL (150-450)
[2022-11-01] MEDS: ACETAMINOPHEN TAB 325 MG TAB PO PRN (09:39)
[2022-11-01 16:23] VITALS: BP 132/85; PULSE 94; TEMP 98.3
== END 2022-11-01 22:21 | disposition home or self-care (01) | DRG 807 ==
LOC: FBPOP 20:09 → 4FBP 20:23
PROVIDERS: ADMIT Obstetrics & Gynecology; ATTEND Obstetrics & Gynecology
PROC: 0KQM0ZZ Repair Perineum Muscle, Open Approach (ICD-10-PCS; principal; 2022-10-31)
PROC: 10E0XZZ Delivery of Products of Conception, External Approach (ICD-10-PCS; principal; 2022-10-31)
DX: O24.420 Gestational diabetes mellitus in childbirth, diet controlled (principal); Z37.0 Single live birth; O70.1 Second degree perineal laceration during delivery; Z3A.37 37 weeks gestation of pregnancy; Z79.899 Other long term (current) drug therapy
CPT/HCPCS: 82565; 82570; 83036; 83615; 84156; 84450; 84460; 84520; 84550; 85025; 86850; 86900; 86901